=== PATIENT | female | born 1965 | race African-American/Black ===

== ENCOUNTER → 2017-03-25 | Outpatient (CLI) | payer MEDICAID ==
[~2017-03-25] MED LIST: AMBIEN 5MG TABLE5 MG PO; B-121000 MCG PO; CIPRO500 MG PO; CLARITIN 1010 MG/TAB PO; FLEXERIL10 MG PO; HCTZ; HCTZ 25MG25 MG PO; LORTAB 5/500 501 TAB PO; LORTAB 7.5/5001 TAB PO; MOTRIN600 MG PO; NAPROSYN500 MG PO; NORCO 325 MG-51 TAB PO; NORVASC 5MG5 MG/TAB PO; OXYCODONE5 MG PO; PERCOCET 325 MG1 TA2 PO; PERCOCET 325 MG1 TAB PO; PERCOCET 500 MG1 TAB PO; PHENERGAN W/CO120 ML PO; PHENERGAN W/CO480 ML PO; PRAVACHOL 40MG40 MG PO; PREDNISONE20 MG PO; PROMETHAZINE12.5 M5 PO; ULTRAM 50MG TAB50 MG PO; VENTOLIN0.09 MG IH; ZESTRIL 10MG10 MG PO; ZITHROMAX Z PA250 MG PO
== END ==
LOC: MC.RAD 11:20
DX: Z12.31 Encounter for screening mammogram for malignant neoplasm of breast (principal)

== ENCOUNTER 2017-08-20 14:13 | Emergency (ER) | payer MEDICAID ==
[~2017-08-20] VITALS: Ht 165.1 cm; Wt 89.5 kg
[2017-08-20 14:18] VITALS: BP 158/83; PULSE 90; TEMP 97.8
[2017-08-20] MEDS ORDERED: AMBIEN 10MG10 MG PO (14:32)
[2017-08-20 14:50] LABS: COLLECTION METHOD CLEAN CATCH
[2017-08-20 14:52] LABS: BASO % 0.2 % (0.0-2.0); EOS % 0.3 % (0-4.0); GRAN # 3.5 (1.4-6.5); GRAN % 40.4 % (42.2-75.2); HEMATOCRIT 40.7 % (37.0-47.0); HEMOGLOBIN 13.9 g/dl (12.5-16.0); LYMPH # 4.2 (1.2-3.4); LYMPH % 48.8 % (20.0-51.0); MEAN CELL VOLUME 84 fl (80.0-100.0); MEAN CORPUSCULAR HEMOGLOBIN 29 pg (27.0-31.0); MEAN CORPUSCULAR HGB CONC 34 g/dl (33.0-37.0); MEAN PLATELET VOLUME 10.2 fl (7.4-10.4); MONO # 0.9 (0.1-0.6); MONO % 10.1 % (1.7-9.3); PLATELET COUNT 219 K/mm3 (130-400); RED BLOOD COUNT 4.86 M/mm3 (4.10-5.30); REDCELL DISTRIBUTION WIDTH-CV 12.9 % (11.5-14.5)
[2017-08-20 14:57] LABS: PH 5 (5-8); URINE APPEARANCE Clear; URINE BACTERIA None Seen /hpf; URINE BILIRUBIN Negative (NEGATIVE); URINE BLOOD Negative (NEGATIVE); URINE COLOR Straw; URINE GLUCOSE Negative (NEGATIVE); URINE KETONE Negative (NEGATIVE); URINE LEUKOCYTE ESTERASE Negative (NEGATIVE); URINE NITRATE Negative (NEGATIVE); URINE PROTEIN(semi-quant) Negative (NEGATIVE); URINE RBC 0-2 /hpf; URINE UROBILINOGEN Negative (NEGATIVE)
[2017-08-20 15:04] LABS: TRICYCLIC ANTIDEPRESS URINE NEGATIVE
[2017-08-20 15:05] LABS: ACETAMINOPHEN < 10 ug/mL (10-30); ALANINE AMINOTRANSFERASE 29 U/L (9-52); ALBUMIN 4.3 gm/dL (3.5-5.0); ALCOHOL(ethanol),MEDICAL < 10 mg/dL; ALKALINE PHOSPHATASE 79 U/L (50-136); ANION GAP 12 mmol/L (7-16); AST,SGOT 40 U/L (15-37); BILIRUBIN,TOTAL 0.3 mg/dL (0.0-1.0); BLOOD UREA NITROGEN 22 mg/dL (7-17); CALCIUM 9.7 mg/dL (8.4-10.2); CARBON DIOXIDE 22 mmol/L (22-30); CHLORIDE 109 mmol/L (98-107); CREATININE, serum 0.78 mg/dL (0.52-1.25); GLUCOSE 104 mg/dL (74-106); POTASSIUM 3.7 mmol/L (3.4-5.0); SALICYLATE < 1.0 mg/dL; SODIUM 143 mmol/L (137-145); TOTAL PROTEIN 8.4 gm/dL (6.4-8.2)
== END 2017-08-20 15:21 | disposition left against medical advice (07) ==
LOC: COL.ER 14:13
PROVIDERS: Nurse Practitioner
DX: F32.9 Major depressive disorder, single episode, unspecified (principal); F41.9 Anxiety disorder, unspecified; G47.00 Insomnia, unspecified; I10 Essential (primary) hypertension; E78.5 Hyperlipidemia, unspecified; F17.210 Nicotine dependence, cigarettes, uncomplicated; Z88.2 Allergy status to sulfonamides; Z88.8 Allergy status to other drugs, medicaments and biological substances

== ENCOUNTER → 2018-03-29 | Outpatient (CLI) | payer MEDICAID ==
[~2018-03-29] MED LIST changes: +AMBIEN 10MG10 MG PO
== END ==
LOC: MC.RAD 07:51
DX: Z12.31 Encounter for screening mammogram for malignant neoplasm of breast (principal)

== ENCOUNTER 2019-05-04 16:09 | Emergency (ER) | payer MEDICAID ==
[~2019-05-04] VITALS: Ht 162.6 cm; Wt 90.0 kg
[2019-05-04] MEDS ORDERED: DAZIDOX10 MG PO (16:14)
[2019-05-04] MEDS ORDERED: DILAUDID 2MG TAB2 MG PO (16:14)
[2019-05-04 17:11] LABS: BASO % 0.3 % (0.0-2.0); EOS % 0.2 % (0-4.0); GRAN # 8.9 (1.4-6.5); GRAN % 72.4 % (42.2-75.2); HEMATOCRIT 44.2 % (37.0-47.0); HEMOGLOBIN 14.7 g/dl (12.5-16.0); LYMPH # 2.6 (1.2-3.4); LYMPH % 20.7 % (20.0-51.0); MEAN CELL VOLUME 88 fl (80.0-100.0); MEAN CORPUSCULAR HEMOGLOBIN 29 pg (27.0-31.0); MEAN CORPUSCULAR HGB CONC 33 g/dl (33.0-37.0); MEAN PLATELET VOLUME 10.3 fl (7.4-10.4); MONO # 0.7 (0.1-0.6); MONO % 5.7 % (1.7-9.3); PLATELET COUNT 206 K/mm3 (130-400); RED BLOOD COUNT 5.05 M/mm3 (4.10-5.30); REDCELL DISTRIBUTION WIDTH-CV 13.2 % (11.5-14.5)
[2019-05-04 17:25] LABS: ALBUMIN 4.8 gm/dL (3.5-5.0); BILIRUBIN,TOTAL 0.5 mg/dL (0.0-1.0); CALCIUM 9.1 mg/dL (8.4-10.2); CREATININE, serum 0.55 (0.52-1.25); POTASSIUM 4.1 mmol/L (3.4-5.0); TOTAL PROTEIN 8.3 gm/dL (6.4-8.2)
[2019-05-04 18:11] LABS: TRICYCLIC ANTIDEPRESS URINE NEGATIVE
[2019-05-04 18:55] VITALS: BP 120/82; PULSE 83; TEMP 98.1
== END 2019-05-04 19:03 | disposition home or self-care (01) ==
LOC: COL.ER 16:09
PROVIDERS: Emergency Medicine
DX: T40.7X5A Adverse effect of cannabis (derivatives), initial encounter (principal); I10 Essential (primary) hypertension; E78.5 Hyperlipidemia, unspecified; D57.1 Sickle-cell disease without crisis; F17.210 Nicotine dependence, cigarettes, uncomplicated; Z90.49 Acquired absence of other specified parts of digestive tract; Z98.51 Tubal ligation status
CPT/HCPCS: J2405; J7030

== ENCOUNTER → 2019-06-08 | Outpatient (CLI) | payer MEDICAID ==
[~2019-06-08] VITALS: Ht 162.6 cm; Wt 83.0 kg
[~2019-06-08] MED LIST changes: +CYMBALTA 30MG30 MG PO; +DAZIDOX10 MG PO; +DILAUDID 2MG TAB2 MG PO
[2019-06-08 10:55] VITALS: BP 131/80; PULSE 84
[2019-06-08 11:49] VITALS: BP 126/59; PULSE 73
[2019-06-08 11:53] VITALS: BP 114/71; PULSE 92
[2019-06-08 11:54] VITALS: BP 165/70; PULSE 96
[2019-06-08 11:55] VITALS: BP 131/72; PULSE 96
[2019-06-08 11:56] VITALS: BP 119/41; PULSE 91
== END ==
LOC: COL.CARD 06-01 09:15
DX: I20.8 Other forms of angina pectoris (principal)
CPT/HCPCS: A9500; J2785

== ENCOUNTER → 2019-06-22 | Outpatient (CLI) | payer MEDICAID | LOC: MC.RAD 08:03 | DX: Z12.31 Encounter for screening mammogram for malignant neoplasm of breast (principal) ==

== ENCOUNTER 2020-04-22 00:46 | Emergency (ER) | payer MEDICAID ==
[~2020-04-22] VITALS: Ht 165.1 cm; Wt 79.5 kg
[2020-04-22 00:51] VITALS: TEMP 97.4
[2020-04-22 01:14] LABS: BASO % 0.3 % (0.0-2.0); EOS % 0.3 % (0-4.0); GRAN # 7.6 (1.4-6.5); GRAN % 60.4 % (42.2-75.2); HEMOGLOBIN 12.9 g/dl (12.5-16.0); LYMPH % 32.1 % (20.0-51.0); MEAN CELL VOLUME 85 fl (80.0-100.0); MEAN CORPUSCULAR HEMOGLOBIN 29 pg (27.0-31.0); MEAN CORPUSCULAR HGB CONC 34 g/dl (33.0-37.0); MEAN PLATELET VOLUME 10.2 fl (7.4-10.4); MONO # 0.8 (0.1-0.6); MONO % 6.5 % (1.7-9.3); PLATELET COUNT 227 K/mm3 (130-400); RED BLOOD COUNT 4.48 M/mm3 (4.10-5.30)
[2020-04-22 01:25] LABS: ALBUMIN 4.3 gm/dL (3.5-5.0); BILIRUBIN,TOTAL 0.4 mg/dL (0.0-1.0); CALCIUM 8.7 mg/dL (8.4-10.2); CREATININE, serum 0.59 (0.52-1.25); POTASSIUM 3.1 mmol/L (3.4-5.0); TOTAL PROTEIN 7.4 gm/dL (6.4-8.2)
[2020-04-22] MEDS ORDERED: ZOFRAN 4MG T4 MG/TAB PO (03:24)
[2020-04-22 03:49] LABS: TRICYCLIC ANTIDEPRESS URINE NEGATIVE
[2020-04-22 04:05] VITALS: BP 111/62; PULSE 83
== END 2020-04-22 04:05 | disposition home or self-care (01) ==
LOC: COL.ER 00:46
PROVIDERS: Nurse Practitioner
DX: R11.2 Nausea with vomiting, unspecified (principal); R19.7 Diarrhea, unspecified; F12.90 Cannabis use, unspecified, uncomplicated; F17.210 Nicotine dependence, cigarettes, uncomplicated; Z88.2 Allergy status to sulfonamides
CPT/HCPCS: J2405; J2550; J7030

== ENCOUNTER → 2020-07-11 | Outpatient (CLI) | payer MEDICAID ==
[~2020-07-11] MED LIST changes: +ZOFRAN 4MG T4 MG/TAB PO
== END ==
LOC: MC.RAD 08:30
DX: Z12.31 Encounter for screening mammogram for malignant neoplasm of breast (principal)